=== PATIENT | male | born 1995 | race Caucasian/White ===

== ENCOUNTER 2016-11-28 18:08 | Emergency (ER) | payer OTHER ==
[~2016-11-28] VITALS: Ht 172.7 cm; Wt 101.8 kg
[2016-11-28] MEDS ORDERED: IBUPROFEN 800 MG TABLET PO ONE (18:45)
[2016-11-28 19:55] VITALS: BP 148/71
== END 2016-11-28 20:04 | disposition home or self-care (01) ==
LOC: EMS 18:11
DX: S90.112A Contusion of left great toe without damage to nail, initial encounter (principal); W20.8XXA Other cause of strike by thrown, projected or falling object, initial encounter; Y93.89 Activity, other specified; Y92.89 Other specified places as the place of occurrence of the external cause; Y99.0 Civilian activity done for income or pay
CPT/HCPCS: 99284